=== PATIENT | female | born 1980 | race Caucasian/White ===

== ENCOUNTER 2024-11-24 18:47 | Emergency (ER) | payer MEDICARE ==
[~2024-11-24] VITALS: Ht 162.6 cm; Wt 82.0 kg
[2024-11-24 18:53] VITALS: O2SAT 98
[2024-11-24] MEDS: ACETAMINOPHEN 500MG TABLET PO ONE (20:07)
[2024-11-24 21:04] VITALS: BP 129/91; PULSE 94; RESP 12; TEMP 36.9; O2SAT 98
[2024-11-24] MEDS ORDERED: IBUP-2029 MT (21:33)
== END 2024-11-24 21:50 | disposition home or self-care (01) ==
LOC: ER 18:47
DX: M79.651 Pain in right thigh (principal); M79.652 Pain in left thigh; V89.2XXA Person injured in unspecified motor-vehicle accident, traffic, initial encounter; Y93.89 Activity, other specified; Y92.89 Other specified places as the place of occurrence of the external cause; Y99.8 Other external cause status
CPT/HCPCS: 81025; 73503; 73552; 73560; 73562; 99284; Z7610